=== PATIENT | female | born 1965 | race Caucasian/White ===

== ENCOUNTER → 2024-02-18 | Outpatient (CLI) | payer OTHER, SELFPAY ==
--- NOTE | 2024-02-18 07:29 | US_ITS ---
STUDY: ABDOMINAL ULTRASOUND - RIGHT UPPER QUADRANT; ELASTOGRAPHY REASON FOR VISIT: Female, 58 years old. Hepatomegaly. NAFLD. TECHNIQUE: Ultrasound evaluation of the right upper quadrant was performed with real-time and static [place]-scale imaging. Point quantification shear wave elastography was performed ([employer]). TECHNICAL QUALITY: Adequate. COMPARISON: None. FINDINGS: Liver: The liver is enlarged and measures 24.1 cm. There is increased echogenicity consistent with fatty infiltration. The bile ducts are within normal limits. There is hepatic color flow. The direction of portal flow is hepatopetal. Multiple cysts are seen in both lobes. The largest cyst in the right lobe of the liver measures 3.3 cm x 1.9 cm x 2.2 cm. The largest cyst in the left lobe measures 2.9 cm x 2 cm x 1.5 cm. Median liver stiffness measured 6.7 kPa. Gallbladder: Normal distended gallbladder. The gallbladder wall measures 1.6 mm. There is a negative sonographic Dougherty''s sign. There is no pericholecystic fluid. There are no gallstones. There is a 5 mm x 5 mm x 3 mm gallbladder polyp. Common Bile Duct (C.B.D.): The common bile duct measures 5.8 mm. Pancreas: There is normal echogenicity of the visualized pancreas. There is no demonstrated pancreatic mass or cyst. Right Kidney: Normal size of the right kidney. The right kidney measures 12.5 cm x 4.2 cm x 4.1 cm. Normal renal cortex. The right cortex measures 1.1 cm. There is no demonstrated renal mass or cyst. There is no right hydronephrosis. IMPRESSION: 1. 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 2. Hepatomegaly and diffuse fatty infiltration of the liver. Hepatic cysts. Electronically Signed: Jose Jaurgeui MD at 15:28 EDT , STUDY: ABDOMINAL ULTRASOUND - LEFT UPPER QUADRANT REASON FOR EXAM: Female, 58 years old. NAFLD, Massive liver enlargement on CT 01/21/24 -- INCLUDING SPLEEN TECHNIQUE: Transabdominal ultrasound was performed with real-time and static [place] scale imaging. TECHNICAL QUALITY: Adequate. COMPARISON: None. FINDINGS: Spleen: Normal size of the spleen. The spleen measures 8.8 cm x 3.8 cm x 3.7 cm. US/ABD Limited w/ Elastography IMPRESSION: Normal left upper quadrant abdominal ultrasound examination. Electronically Signed: Jose Jauregui MD at 15:28 EDT ,
== END | disposition home or self-care (01) ==
PROVIDERS: Referring Provider Internal Medicine; Visit Provider Internal Medicine
DX: K76.0 Fatty (change of) liver, not elsewhere classified (principal); R16.0 Hepatomegaly, not elsewhere classified
CPT/HCPCS: 76705; 76981

== ENCOUNTER → 2024-02-26 | Outpatient (CLI) | payer OTHER, SELFPAY ==
--- NOTE | 2024-02-26 13:32 | ECHOD_ITS ---
Reason For Study: Hepatomegaly, LE Edema Procedure This was a 2D Doppler, Color Flow transthoracic echocardiogram. Exam performed in department. Left Ventricle Normal LV size. Left ventricular systolic function is normal. The left ventricular ejection fraction is 60 %. Stage 1 diastolic dysfunction. No regional wall motion abnormalities noted. Right Ventricle Normal RV size. Normal systolic function. Atria Normal left atrium. Normal right atrium. Mitral Valve Normal mitral valve. Tricuspid Valve Normal tricuspid valve. Mild tricuspid valve insufficiency. Pulmonary artery systolic pressure is 30 mmHg. Aortic Valve Trisinus/trileaflet aortic valve. Pulmonic Valve Normal pulmonic valve. Great Vessels Normal aortic root. The pulmonary artery is normal size. Inferior vena cava collapse with respiration. Pericardium/Pleural No pericardial effusion. MMode/2D Measurements & Calculations LVIDd: 4.0 cm IVSd: 1.5 cm Ao root diam: 3.3 cm LVIDs: 2.3 cm LVPWd: 1.1 cm LA dimension: 3.3 cm RVDd: 3.7 cm FS: 43.1 % LAV(MOD-bp): 31.4 ml LVAd ap4: 21.8 cm2 SV(MOD-sp4): 36.4 ml LAV(MOD-bp) Indexed: 16.2 ml/m2 LVLd ap4: 7.4 cm LAV(MOD-sp2): 31.5 ml EDV(MOD-sp4): 53.8 ml LAV(MOD-sp4): 27.6 ml EDV(sp4-el): 54.8 ml LVAs ap4: 11.4 cm2 LVLs ap4: 6.7 cm ESV(MOD-sp4): 17.4 ml ESV(sp4-el): 16.6 ml EF(MOD-sp4): 67.6 % EF(sp4-el): 69.6 % SV(sp4-el): 38.2 ml LA A4 area: 13.0 cm2 RA A4 area: 13.7 cm2 TAPSE: 2.2 cm Time Measurements MV dec time: 0.21 sec Doppler Measurements & Calculations MV E max jong: 69.1 cm/sec Lat Peak E' Jong: 9.8 cm/sec Med Peak E' Jong: 6.8 cm/sec MV A max jong: 74.7 cm/sec E/E' lat: 7.0 E/E' med: 10.2 MV E/A: 0.93 MV V2 max: 89.8 cm/sec MV P1/2t max jong: 79.6 cm/sec Ao V2 max: 115.7 cm/sec MV max P.2 mmHg MV P1/2t: 70.2 msec Ao max P.4 mmHg MV V2 mean: 49.9 cm/sec MV dec slope: 332.2 cm/sec2 Ao V2 mean: 88.5 cm/sec MV mean P.2 mmHg Ao mean P.5 mmHg MV V2 VTI: 23.1 cm MVA(P1/2t): 3.1 cm2 Ao V2 VTI: 28.9 cm AV (velocity ratio): 0.95 LV V1 max: 106.9 cm/sec PA V2 max: 80.0 cm/sec TR max jong: 261.7 cm/sec LV V1 max P.6 mmHg TR max P.4 mmHg LV V1 mean P.5 mmHg LV V1 mean: 74.6 cm/sec LV V1 VTI: 27.6 cm ECHO/Echo Complete Interpretation Summary Normal LV size. Left ventricular systolic function is normal. The left ventricular ejection fraction is 60 %. Stage 1 diastolic dysfunction. Structurally normal valves. Ordering Physician: Jos Metcalf Referring Physician: Jos Metcalf Performed By: Yemi Leonardo RCS
== END | disposition home or self-care (01) ==
PROVIDERS: PCP Nurse Practitioner Family; Referring Provider Internal Medicine; Visit Provider Internal Medicine
DX: R16.0 Hepatomegaly, not elsewhere classified (principal)
CPT/HCPCS: 93306

== ENCOUNTER → 2024-04-22 | Outpatient (CLI) | payer OTHER, SELFPAY ==
[2024-04-22 13:23] LABS: Bacteria 0 SEEN /hpf (None Seen); Mucous, Urine 0 SEEN /hpf (<or=2+); Red Blood Cells-Urine 0 SEEN /hpf (0-5); Squamous Epithelial Cells - UA 0 SEEN /hpf (5-10); White Blood Cells 0 SEEN /hpf (0-5)
[2024-04-22 15:24] LABS: Color, Urine Yellow (Yellow); Glucose, Dipstick Normal (Normal); Ketone-Dipstick Negative (Negative); Leukocyte Esterase-Dipstick Negative /ul (Negative); Nitrite-Dipstick Negative (Negative); Occult Blood-Urine Negative /ul (Negative); Protein-Dipstick Negative (Negative); Urine Bilirubin Dipstick Negative (Negative); Urine Clarity Clear (Clear); Urine Urobilinogen Normal (Normal)
[2024-04-22 15:37] LABS: International Normalized Ratio 0.9; Prothrombin Time (Protime)PT. 11.8 SECONDS (11.7-14.9)
[2024-04-22 15:44] LABS: Hemoglobin A1c 5.5 % (3.8-5.6)
[2024-04-22 15:48] LABS: Erythrocyte Sedimentation Rate 6 mm/hr (0-30)
[2024-04-22 15:49] LABS: Absolute Lymphocyte Count 3.26 X10^3/uL (0.83-4.51); Absolute Neutrophil Count 2.7 X10^3/uL (2.0-7.7); Basophil# 0.07 X10^3/uL; Eosinophil# 0.18 X10^3/uL; Eosinophils% 2.6 % (0-5); Hematocrit 39.7 % (37-47); Hemoglobin 13.3 g/dL (12.0-15.0); Lymphocyte # 3.26 X10^3/ul (0.83-4.51); Lymphocyte % 47.5 % (19-41); Mean Corp Hgb Conc 33.5 g/dL (32-36); Mean Corpuscular Hgb 29.6 pg (27.0-32.0); Mean Corpuscular Volume 88.2 fL (81-99); Mean Platelet Vol. 8.9 fl (6.2-12.0); Monocyte# 0.61 X10^3/uL; Monocyte% 8.9 % (0-10); NRBC Flagged by Analyzer 0 % (0-5); Neutrophil # 2.72 X10^3/uL (2.7-7.7); Neutrophil % 39.7 % (47-70); Platelet Count 348 K/mm3 (150-450); RBC Distribution Width CV 13.2 % (11.6-14.6); RBC Distribution Width SD 42.8 fl (35.1-43.9); White Blood Count 6.9 K/mm3 (4.4-11.0)
[2024-04-22 15:51] LABS: ALB/GLOB Ratio 1.1 RATIO (0.9-2.4); AST(SGOT) 38 U/L (15-37); Alanine Aminotransfer ALT/SGPT 89 U/L (13-56); Albumin, Serum 3.7 g/dL (3.2-5.0); Alkaline Phosphatase 88 U/L (45-117); Anion Gap 5 (5-15); BUN 16 mg/dL (7-18); BUN/Creat Ratio 17.9 RATIO (10-20); CRP 6.64 mg/L (0.0-3.0); Calcium,Total 10.2 mg/dL (8.5-10.1); Chloride 109 mmol/L (98-107); Cholesterol 229 mg/dL (200); EST Glomerular Filtration Rate 68 mL/min (>60); Est Glom Filt Rate - Afr Amer 83 mL/min (>60); Ferritin 66 ng/mL (8-252); Globulin 3.3 g/dL (2.2-4.2); Glucose 108 mg/dL (74-106); High Density Lipoprotein 59 mg/dL; Iron 64 ug/dL (50-170); Iron Binding Capacity,Total 309 ug/dL (250-450); LDH 216 U/L (84-246); PERCENT IRON SATURATION 20.7 % (15.0-55.0); Potassium 3.6 mmol/L (3.5-5.1); Sodium Level 142 mmol/L (136-145); Triglycerides 126 mg/dL; Very Low Density Lipoprotein 25 mg/dL (5-40)
[2024-04-22 16:08] LABS: HIV - WCH Non-Reactive (Nonreactive); Vitamin B12 643 pg/mL (211-911); Vitamin D,25 Hydroxy 22.9 ng/mL
[2024-04-24 15:08] LABS: ANTINUCLEAR ANTIBODIES DIRECT Positive (Negative); Anti-Centromere B Ab <0.2 AI (0.0-0.9); Anti-Chromatin <0.2 AI (0.0-0.9); Anti-Jo <0.2 AI (0.0-0.9); Anti-Mitochondrial AB <20.0 Units (0.0-20.0); Anti-Scleroderma-70 AB <0.2 AI (0.0-0.9); Anti-dsDNA Ab <1 IU/mL (0-9); RNP Ab 7.9 AI (0.0-0.9); SJOGREN'S Anti-SS-A test < 0.2 AI (0.0-0.9); SJOGREN'S Anti-SS-B test < 0.2 AI (0.0-0.9); Smith Ab <0.2 AI (0.0-0.9)
[2024-04-27 09:07] LABS: AFP, Tumor Marker 4.2 ng/mL (0.0-9.2); Albumin 3.7 g/dL (2.9-4.4); Alpha-1-Globulins 0.2 g/dL (0.0-0.4); Alpha-2-Globulins 0.7 g/dL (0.4-1.0); Angiotensin Convert Enzyme 47 U/L (14-82); Anti-Smooth Muscle ABS 10 Units (0-19); CMV Acute Antibody IgM < 30.0 AU/mL (0.0-29.9); Ceruloplasmin 27.4 mg/dL (19.0-39.0); Copper, Serum or Plasma 110 ug/dL (80-158); Cytoplasmic Ab (C-ANCA) <1:20 titer (Neg:<1:20); Gamma Globulin 0.7 g/dL (0.4-1.8); HEPATITIS B SURFACE AG Negative (Negative); Haptoglobin 161 mg/dL (33-346); Hep C Antibodies Non Reactive (Non Reactive); Hepatitis A IgM Antibody Negative (Negative); Hepatitis B Core AB IgM Negative (Negative); Immunoglobulin A 205 mg/dL (87-352); Immunoglobulin G 782 mg/dL (586-1602); Immunoglobulin M 47 mg/dL (26-217); PROEL- TOTAL PROTEIN 6.6 g/dL (6.0-8.5); Perinuclear Ab (P-ANCA) <1:20 titer (Neg:<1:20)
== END | disposition home or self-care (01) ==
PROVIDERS: PCP Nurse Practitioner Family; Referring Provider Internal Medicine; Visit Provider Internal Medicine
DX: R79.89 Other specified abnormal findings of blood chemistry (principal); R16.0 Hepatomegaly, not elsewhere classified; K76.0 Fatty (change of) liver, not elsewhere classified
CPT/HCPCS: 36415; 80053; 80061; 80074; 81001; 82105; 82140; 82164; 82306; 82390; 82525; 82607; 82728; 82746; 82784; 83010; 83036; 83516; 83540; 83550; 83615; 84165; 84443; 85025; 85610; 85652; 86037; 86038; 86140; 86225; 86235; 86334; 86645; 86703